=== PATIENT | male | born 1990 | race Hispanic/Latino ===

== ENCOUNTER 2024-02-29 23:31 | Emergency (ER) | payer OTHER ==
[~2024-02-29] VITALS: Ht 177.8 cm; Wt 83.9 kg
[2024-02-29] MEDS ORDERED: DOXYCYCLINE HYCLATE 100 MG HOME.PACK PO ONE (23:45)
[2024-02-29] MEDS ORDERED: HYDROCODONE BIT/ACETAMINOPHEN 5/325 MG 1 TAB HOME.PACK PO ONE (23:45)
[2024-02-29] MEDS ORDERED: SULFAMETHOXAZO1 EAC1 PO (23:47)
[2024-02-29] MEDS ORDERED: HYDROCODON-ACE1 EA10 PO (23:49)
[2024-03-01 00:03] VITALS: BP 140/77
== END 2024-03-01 00:04 | disposition home or self-care (01) ==
LOC: ED 23:31
DX: L02.211 Cutaneous abscess of abdominal wall (principal); L03.311 Cellulitis of abdominal wall; Z79.2 Long term (current) use of antibiotics
CPT/HCPCS: 99282; A9270